=== PATIENT | female | born 1950 ===

== ENCOUNTER → 2025-04-04 11:12 | Outpatient (REF) | payer MEDICARE, BC, SELFPAY | LOC: RAD 11:12 | PROVIDERS: ATTENDING PHYSICIAN Student in an Organized Health Care Education/Training Program; FAMILY PHYSICIAN Family Medicine | DX: M25.541 Pain in joints of right hand (principal); M25.542 Pain in joints of left hand; M79.671 Pain in right foot; M79.672 Pain in left foot; M25.571 Pain in right ankle and joints of right foot; M25.572 Pain in left ankle and joints of left foot | CPT/HCPCS: 76882 ==